=== PATIENT | male | born 1975 | race Two or more races ===

== ENCOUNTER 2023-06-24 08:50 | Emergency (ER) | payer OTHER ==
[~2023-06-24] VITALS: Ht 182.9 cm; Wt 112.0 kg
[2023-06-24] MEDS ORDERED: VASOTEC5 MG PO (08:56)
== END 2023-06-24 10:12 | disposition home or self-care (01) ==
LOC: ER 08:50
DX: M54.59 Other low back pain (principal)

== ENCOUNTER 2023-12-10 09:45 | Emergency (ER) | payer OTHER ==
[~2023-12-10] VITALS: Ht 193 cm; Wt 110.2 kg
[~2023-12-10 09:45] MED LIST: VASOTEC5 MG PO
[2023-12-10] MEDS ORDERED: ADULT LOW DOSE81 M1 PO (10:28)
[2023-12-10] MEDS ORDERED: FENOFIBRATE150 MG PO (10:28)
== END 2023-12-10 13:41 | disposition home or self-care (01) ==
LOC: ER 09:45
DX: B34.9 Viral infection, unspecified (principal); Z20.822 Contact with and (suspected) exposure to COVID-19